=== PATIENT | male | born 1990 | race Caucasian/White ===

== ENCOUNTER 2021-08-16 13:40 | Emergency (ER) | payer OTHER, SELFPAY ==
--- NOTE | 2021-08-16 13:48 | ED.BACK ---
HPI - Back Pain/Injury General Chief Complaint: Back Pain/Injury Stated Complaint: Back pain Time Seen by Provider: 08/16/21 14:03 Source: patient and RN notes reviewed Mode of arrival: ambulatory Limitations: no limitations History of Present Illness HPI Narrative: 31-year-old male presents with concern for left low back pain. He reports symptoms started approximately 3 weeks ago while at work when he bent over to pick something up off the floor. He denies any direct trauma or injury. He denies any abdominal pain, vomiting, loss of bowel or bladder function, perianal anesthesia, bruising, rash, redness, warmth. Reports pain shoots down his left leg. MD elicited complaint: back pain Related Data Home Medications Medication Instructions Recorded Confirmed No Home Medications 08/16/21 08/16/21 Allergies Allergy/AdvReac Type Severity Reaction Status Date / Time No Known Allergies Allergy Verified 08/16/21 14:01 Review of Systems Review of Systems: CONSTITUTIONAL: Denies malaise, chills, sweats, or fever. CARDIOVASCULAR: Denies chest pain, palpitations, or edema. RESPIRATORY: Denies cough or dyspnea. GASTROINTESTINAL: Denies abdominal pain, nausea, vomiting, diarrhea GENITOURINARY: Denies dysuria or hematuria. SKIN: Denies rash or itching. MUSCULOSKELETAL: Reports left low back pain that radiates to the left leg NEUROLOGIC: Denies numbness, weakness, or headache. All systems reviewed & are unremarkable except as noted in HPI and below PMFSH Comments At time of signature, agree with nursing past medical, surgical, social and family history. There is no relevant family history pertinent to the presenting complaint Exam Narrative: GENERAL: Well-appearing, well-nourished, and in no acute distress. HEAD: Normocephalic, atraumatic. EYES: PERRLA and EOMI. NECK: Supple. No lymphadenopathy. CHEST: Clear to auscultation. No respiratory distress. HEART: Regular rate and rhythm. Distal pulses palpable and equal, cap refill <3 seconds ABDOMEN: Soft, nontender, nondistended, normal active bowel sounds, no palpable or pulsatile masses. No CVA tenderness MUSCULOSKELETAL: Normal range of motion and strength in all extremities; 5/5 strength with hip flexion and extension, dorsiflexion and extension, knee flexion and extension, plantar flexion and extension. Normal sensation in dermatomal distributions with sensitivity to light touch and pain. No midline back tenderness to palpation. No paraspinal tenderness. Transfers from sitting to standing. SKIN: Warm, dry, no rash. No ecchymosis, erythema, open wounds to back. NEURO: No focal deficits. Alert and oriented x3. Reflexes intact. Normal gait. PSYCH: Normal mood and affect Course Course Emergency Course: Patient is aware of diagnosis, understands and agrees to treatment plan. Anticipatory guidance given. Patient agrees to follow-up as directed and is aware of reasons to seek care at the emergency department. Portions of this record may have been created with voice recognition software Vital Signs Vital signs: Reviewed. MDM - Back Pain/Injury MDM Narrative Medical decision making narrative: No risk factors or findings concerning for epidural abscess, diskitis, vertebral osteomyelitis, cord compression, cauda equina, vertebral fracture or bone malignancy, AAA, or pyelonephritis. Patient instructed to consider further imaging and workup through their primary care physician as an outpatient if symptoms persist. Critical Care Time Critical Care Time Critical Care Time: No Discharge Plan Discharge Clinical Impression: Non-specific low back pain Patient Disposition: Home, Self-Care Condition: Stable Instructions: Lower Back Exercises (ED) Additional Instructions: Please follow up with your Primary Care Doctor within 48-72 hours - call for an appointment. Walking and other gentle exercising several times a week has been shown to improve back pain; bed rest is not recomm
[2021-08-16 13:50] VITALS: BP 142/60; PULSE 76; RESP 16; TEMP 37; O2SAT 99
== END 2021-08-16 14:16 | disposition home or self-care (01) ==
PROVIDERS: Emergency Provider Nurse Practitioner
DX: M54.50 Low back pain, unspecified (principal); M41.9 Scoliosis, unspecified
CPT/HCPCS: 99213; G0463

== ENCOUNTER 2024-07-23 08:09 | Emergency (ER) | payer OTHER, SELFPAY ==
--- NOTE | ~2024-07-23 | XR_ITS ---
Right ankle Technique: AP, oblique, and lateral views were obtained. Clinical History: Pain Findings: Probable vertically oriented nondisplaced fracture the posterior malleolus. No other fractu re or dislocation evident. Ankle mortise and other visualized joint spaces are preserved. Soft tissu es are otherwise unremarkable. Impression: Probable vertically oriented nondisplaced fracture the posterior malleolus. Reviewed, dictated and finalized at location . Impression: Probable vertically oriented nondisplaced fracture the posterior malleolus.
[2024-07-23 08:22] VITALS: BP 145/85; PULSE 72; RESP 18; TEMP 36.8; O2SAT 100
--- NOTE | 2024-07-23 08:36 | ED.GENADULT ---
HPI - General Adult General Chief complaint: Extremity Injury, Lower Stated complaint: Right Ankle Injury Source: patient Mode of arrival: ambulatory Limitations: no limitations History of Present Illness HPI narrative: Patient presents for evaluation of right ankle pain. Symptom onset 3 days ago. 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 At work last Monday, he stepped on an object and twisted his ankle. This caused him to fall to the ground. He has experienced pain and swelling in the right ankle since that time. He rates his pain 5/10 in severity. Weight-bearing and movement make his symptoms worse. He went to an urgent care this same day of the injury. They did not have x-ray capability. The advised him on RICE therapy and he has been taking ibuprofen. The medication helped with swelling but not so much with pain. He was initially using a cane to help support him while ambulating but has since stopped using it. Related Data Allergies Allergy/AdvReac Type Severity Reaction Status Date / Time No Known Allergies Allergy Verified 08/16/21 14:01 Review of Systems Review of Systems: CONSTITUTIONAL: Denies fever, chills, or sweats. EYES: Denies visual changes, redness, or discharge. ENT: Denies rhinorrhea, congestion, sore throat, or otalgia. CARDIOVASCULAR: Denies chest pain, palpitations, or edema. RESPIRATORY: Denies cough or dyspnea. GASTROINTESTINAL: Denies abdominal pain, nausea, vomiting, or diarrhea. GENITOURINARY: Denies dysuria or hematuria. SKIN: Denies rash or itching. MUSCULOSKELETAL: Reports right ankle pain and swelling NEUROLOGIC: Denies headache, numbness, dizziness, or weakness. PSYCHIATRIC: Denies anxiety or depression. 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 HEAD: Normocephalic, atraumatic. EYES: PERRLA and EOMI. ENT: Nares clear, no rhinorrhea or epistaxis. Mucous membranes moist. Oropharynx without tonsillar hypertrophy exudate or other lesions. Bilateral TMs pearly zepeda nonbulging NECK: Supple. No adenopathy or masses. No carotid bruits or JVD CHEST: Clear to auscultation. No respiratory distress. No wheezes rales or rhonchi HEART: Regular rate and rhythm. No murmur heard. Normal peripheral pulses. ABDOMEN: Soft, nontender, nondistended, normal active bowel sounds. EXTREMITIES: Able to dorsi and plantar flex the right foot but has decreased range of motion with both movements. There is no tenderness in the anterior aspect of the right ankle but there is tenderness in the posterior aspect of the right ankle. There is no obvious deformity SKIN: Warm, dry, no rash. NEURO: No focal deficits. Alert and oriented x3. PSYCH: Normal mood and affect. Course Course Emergency Course: This is a 34-year-old male who presented for evaluation of right ankle pain following an injury at work. He has evidence of posterior malleolus fracture. Attempted to contact on-call Orthopedic, Dr. Roe, but was unable to reach him. Patient was placed in a short-leg OCL and provided with crutches. Advised to remain nonweightbearing. Follow-up with workman's compensation provider. Will discharge with hydrocodone. Go to the emergency department for intractable pain or temperature/sensory changes in the extremity. Patient in agreement with carlos manuel
== END 2024-07-23 09:36 | disposition home or self-care (01) ==
PROVIDERS: Emergency Provider Nurse Practitioner
DX: S82.891A Other fracture of right lower leg, initial encounter for closed fracture (principal); W18.00XA Striking against unspecified object with subsequent fall, initial encounter; Y99.0 Civilian activity done for income or pay
CPT/HCPCS: 29515; 73610; 99214; G0463